=== PATIENT | female | born 1965 | race Caucasian/White ===

== ENCOUNTER 2018-08-07 15:25 | Inpatient (IN) ==
[2018-08-07] MEDS ORDERED: ACETAMINOPHEN 325 MG TABLET PO PRN (16:22)
[2018-08-07] MEDS ORDERED: PROMETHAZINE 25 MG/1 ML VIAL IM PRN (16:22)
[2018-08-07] MEDS ORDERED: ONDANSETRON 4 MG/2 ML VIAL IV PRN (16:22)
[2018-08-07 17:37] LABS: Basophils # 0.1 10*3/uL (0.0-0.2); Basophils % 0.8 % (0.0-0.8); Eosinophils # 0.3 10*3/uL (0.0-0.87); Eosinophils % 4.5 % (0.00-10.9); Hematocrit 39.9 VOL% (35.7-47.0); Hemoglobin 12.8 GM/DL (12.0-16.0); Immature Granulocytes % 0.3 %; Immature Granulocytes Absolute 0.02 #; Lymphocytes % 27.7 % (21.3-54.2); Mean Corpuscular HGB Conc 32.1 GM/DL (32-36); Mean Corpuscular Hemoglobin 27 PG (27-34); Mean Corpuscular Volume 84.4 FL (87-102); Mean Platelet Volume 11.3 FL (9.6-12.0); Monocytes # 0.6 10*3/uL (0.11-0.8); Monocytes % 7.7 % (1.7-12.7); Neutrophils # 4.3 10*3/uL (1.4-7.4); Platelet Count 330 T/CUMM (130-400); Red Blood Count 4.73 MC/CUMM (3.8-5.5); Red Cell Distribution Width 14.3 % (9.3-17.3); White Blood Count 7.3 T/CUMM (4-12)
[2018-08-07 18:00] LABS: Apearance,Urine CLEAR (Clear); Bilirubin,Urine Negative (Negative); Blood, Urine Small mg/dL (Negative); Glucose,Urine (UA) Negative (Negative); Ketones,Urine Negative (Negative); Mucus,Urine Occasional /LPF (Occasional); Nitrite,Urine Negative (Negative); Protein,Urine Negative; RBC,Urine <1 /HPF (0-4); Urine Color Colorless (Yellow); Urine Specific Gravity 1.002 (1.001-1.035); Urine Urobilinogen < 2.0 EU/DL (0.2-1.0); WBC,Urine <1 /HPF (0-6)
[2018-08-07 18:06] LABS: Albumin 4.2 G/DL (3.4-5.0); Bilirubin,Total 0.4 MG/DL (0.2-1.0); Calcium 9.4 MG/DL (8.5-10.1); Osmolality,Calculated 274.5 MOS/KG (273-304); Potassium 3.3 MMOL/L (3.5-5.1); Total Protein 8.3 G/DL (6.4-8.3)
[2018-08-07] MEDS: POTASSIUM CHLORIDE 20 MEQ TABLET PO PRN ×2 (20:46→23:30)
[2018-08-08] MEDS: LACTATED RINGERS 1,000 ML IV SCH ×3 (01:14→07:20)
[2018-08-08] MEDS: POTASSIUM CHLORIDE 20 MEQ TABLET PO PRN (01:39)
[2018-08-08] MEDS: KETOROLAC 15 MG/1 ML VIAL IV PRN ×2 (07:14→13:27)
[2018-08-08 07:33] LABS: Basophils # 0.1 10*3/uL (0.0-0.2); Eosinophils # 0.3 10*3/uL (0.0-0.87); Eosinophils % 4.8 % (0.00-10.9); Hematocrit 40.6 VOL% (35.7-47.0); Hemoglobin 12.9 GM/DL (12.0-16.0); Immature Granulocytes % 0.3 %; Immature Granulocytes Absolute 0.02 #; Lymphocytes # 1.8 10*3/uL (1.4-4.0); Lymphocytes % 26.9 % (21.3-54.2); Mean Corpuscular HGB Conc 31.8 GM/DL (32-36); Mean Corpuscular Hemoglobin 27 PG (27-34); Mean Corpuscular Volume 84.6 FL (87-102); Mean Platelet Volume 12.4 FL (9.6-12.0); Monocytes # 0.6 10*3/uL (0.11-0.8); Platelet Count 224 T/CUMM (130-400); Red Cell Distribution Width 14.5 % (9.3-17.3); White Blood Count 6.8 T/CUMM (4-12)
[2018-08-08 08:21] LABS: Alanine Aminotransferase 24 U/L (13-56); Albumin 3.8 G/DL (3.4-5.0); Alkaline Phosphatase 127 U/L (45-117); Aspartate Amino Transferase 14 U/L (0-37); Bilirubin,Total < 0.39 MG/DL (0.2-1.0); Blood Urea Nitrogen 11 MG/DL (7-18); Calcium 9.1 MG/DL (8.5-10.1); Glucose 96 MG/DL (74-106); Osmolality,Calculated 271.8 MOS/KG (273-304); Potassium 4.2 MMOL/L (3.5-5.1); Sodium 137 MMOL/L (136-145); Total Protein 7.8 G/DL (6.4-8.3)
[2018-08-08] MEDS ORDERED: tiZANidine 4 MG TABLET PO PRN (08:30)
[2018-08-08] MEDS ORDERED: DIPHENOXYLATE/ATROPINE 2.5-0.025 MG TABLET PO PRN (08:30)
[2018-08-08] MEDS ORDERED: PROMETHAZINE 25 MG TABLET PO PRN (08:30)
[2018-08-08] MEDS ORDERED: NON-FORMULARY MEDICATION (Omeprazole [Prilosec] 20 MG) PO SCH (09:00)
[2018-08-08] MEDS ORDERED: ONDANSETRON 4 MG TABLET PO PRN (09:00)
[2018-08-08] MEDS: DEXT 5% NACL 0.45% KCL 20 MEQ 20 MEQ/1,000 ML BAG IV SCH ×2 (09:04→22:16)
[2018-08-08] MEDS: LISINOPRIL 20 MG TABLET PO SCH ×2 (10:11→21:20)
[2018-08-08] MEDS: ENOXAPARIN 40 MG/0.4 ML SYRINGE SUBCUT SCH (10:11)
[2018-08-08] MEDS: TOPIRAMATE 100 MG TABLET PO SCH ×3 (10:13→21:20)
[2018-08-08] MEDS: LEVOTHYROXINE 125 MCG TABLET PO SCH (10:13)
[2018-08-08] MEDS: PANTOPRAZOLE 40 MG TABLET PO SCH (10:13)
[2018-08-08] MEDS: CETIRIZINE 10 MG TABLET PO SCH (10:13)
[2018-08-08] MEDS: traZODone 50 MG TABLET PO SCH (21:20)
[2018-08-09] MEDS: DEXT 5% NACL 0.45% KCL 20 MEQ 20 MEQ/1,000 ML BAG IV SCH ×3 (04:30→22:29)
[2018-08-09 06:38] LABS: Basophils # 0.1 10*3/uL (0.0-0.2); Basophils % 0.9 % (0.0-0.8); Eosinophils # 0.3 10*3/uL (0.0-0.87); Eosinophils % 6.2 % (0.00-10.9); Hematocrit 35.7 VOL% (35.7-47.0); Hemoglobin 11.2 GM/DL (12.0-16.0); Immature Granulocytes % 0.2 %; Immature Granulocytes Absolute 0.01 #; Lymphocytes # 2.3 10*3/uL (1.4-4.0); Lymphocytes % 42.6 % (21.3-54.2); Mean Corpuscular HGB Conc 31.4 GM/DL (32-36); Mean Corpuscular Hemoglobin 27 PG (27-34); Mean Corpuscular Volume 85.2 FL (87-102); Mean Platelet Volume 11.5 FL (9.6-12.0); Monocytes # 0.6 10*3/uL (0.11-0.8); Monocytes % 10.7 % (1.7-12.7); Neutrophils # 2.1 10*3/uL (1.4-7.4); Neutrophils % 39.4 % (38.7-73.9); Platelet Count 271 T/CUMM (130-400); Red Blood Count 4.19 MC/CUMM (3.8-5.5); Red Cell Distribution Width 14.5 % (9.3-17.3); White Blood Count 5.3 T/CUMM (4-12)
[2018-08-09 07:07] LABS: Albumin 3.3 G/DL (3.4-5.0); Bilirubin,Total 0.9 MG/DL (0.2-1.0); Calcium 8.2 MG/DL (8.5-10.1); Osmolality,Calculated 275.5 MOS/KG (273-304); Potassium 3.9 MMOL/L (3.5-5.1); Total Protein 6.5 G/DL (6.4-8.3)
[2018-08-09] MEDS: TOPIRAMATE 100 MG TABLET PO SCH ×3 (08:43→20:45)
[2018-08-09] MEDS: KETOROLAC 15 MG/1 ML VIAL IV PRN (08:43)
[2018-08-09] MEDS ORDERED: PROPOFOL 200 MG/20 ML VIAL IV ONE (09:30)
[2018-08-09] MEDS ORDERED: LIDOCAINE 100 MG/5 ML SYRINGE ONE (09:30)
[2018-08-09] MEDS: ENOXAPARIN 40 MG/0.4 ML SYRINGE SUBCUT SCH (12:10)
[2018-08-09] MEDS: PANTOPRAZOLE 40 MG TABLET PO SCH (12:10)
[2018-08-09] MEDS: LISINOPRIL 20 MG TABLET PO SCH ×2 (12:11→20:45)
[2018-08-09] MEDS: CETIRIZINE 10 MG TABLET PO SCH (12:11)
[2018-08-09] MEDS: LEVOTHYROXINE 125 MCG TABLET PO SCH (12:11)
[2018-08-09] MEDS: traZODone 50 MG TABLET PO SCH (20:45)
[2018-08-10] MEDS: LEVOTHYROXINE 125 MCG TABLET PO SCH (08:06)
[2018-08-10] MEDS: ENOXAPARIN 40 MG/0.4 ML SYRINGE SUBCUT SCH (08:06)
[2018-08-10] MEDS: LISINOPRIL 20 MG TABLET PO SCH ×2 (08:06→21:19)
[2018-08-10] MEDS: TOPIRAMATE 100 MG TABLET PO SCH ×3 (08:06→21:19)
[2018-08-10] MEDS: CETIRIZINE 10 MG TABLET PO SCH (08:06)
[2018-08-10] MEDS: PANTOPRAZOLE 40 MG TABLET PO SCH (08:06)
[2018-08-10] MEDS: DEXT 5% NACL 0.45% KCL 20 MEQ 20 MEQ/1,000 ML BAG IV SCH (09:40)
[2018-08-10] MEDS: traZODone 50 MG TABLET PO SCH (21:19)
[2018-08-11] MEDS: DEXT 5% NACL 0.45% KCL 20 MEQ 20 MEQ/1,000 ML BAG IV SCH ×3 (00:35→09:03)
[2018-08-11] MEDS: LISINOPRIL 20 MG TABLET PO SCH (08:58)
[2018-08-11] MEDS: CETIRIZINE 10 MG TABLET PO SCH (08:58)
[2018-08-11] MEDS: TOPIRAMATE 100 MG TABLET PO SCH (08:58)
[2018-08-11] MEDS: LEVOTHYROXINE 125 MCG TABLET PO SCH (08:58)
[2018-08-11] MEDS: PANTOPRAZOLE 40 MG TABLET PO SCH (08:58)
[2018-08-11] MEDS: ENOXAPARIN 40 MG/0.4 ML SYRINGE SUBCUT SCH (08:58)
[2018-08-11 12:47] VITALS: BP 159/90
== END 2018-08-11 14:09 | disposition home or self-care (01) | DRG 251 ==
LOC: N.3E 15:45 → INTOOBSV 15:45
PROVIDERS: ADMIT Surgery; ATTEND Surgery